=== PATIENT | female | born 1935 | race Caucasian/White ===

== ENCOUNTER 2021-01-20 15:23 | Observation (INO) ==
--- NOTE | 2021-01-20 16:28 | Emergency Department Note ---
Recheck HPI General Chief Complaint: Recheck/Abnormal Lab/Rx Stated Complaint: Low H & H Time Seen by Provider: 01/20/21 16:26 Source: patient Mode of arrival: ambulatory Limitations: no limitations History of Present Illness HPI Narrative: This is an 85-year-old female patient who was seen at the [place] emergency room on 01/17 for GI bleed. She had a hemoglobin of 8.0 at the time, and a CT scan showed uncomplicated diverticulitis of the sigmoid colon. She was recommended for admission but declined and was sent home on oral ciprofloxacin and Flagyl. She returned to her PCPs office yesterday for a blood draw with a hemoglobin that had trended down to 7.5. A transfusion was offered, but she declined. She began having some lightheadedness earlier this morning and noted some bright red blood in her stool. She was advised to get her blood drawn at [facility] and had an H/H of 6.8/22.4 with a BUN of 16. She was advised to come to the ER for evaluation. The patient has a history of GI bleed requiring transfusion. She also has a history of colon polyps and gets a colonoscopy every 5 years with her last colo noscopy approximately 5 years ago. She is diabetic on insulin therapies. Orthostatics here in the ER are negative. Her blood pressures are 171/78 mmHg with heart rate of 69 bpm. Related Data Home Medications Medication Instructions Recorded Confirmed aspirin 81 mg PO BID 01/20/21 01/20/21 carvedilol 6.25 mg PO BID 01/20/21 01/20/21 ciprofloxacin HCl 500 mg PO BID 01/20/21 01/20/21 insulin lispro protamin-lispro 10 unit SUBCUT DAILY 01/20/21 01/20/21 [Humalog Mix 75-25 KwikPen] insulin lispro protamin-lispro 12 unit SUBCUT HS 01/20/21 01/20/21 [Humalog Mix 75-25 KwikPen] levothyroxine 75 mcg PO QDAY 01/20/21 01/20/21 losartan-hydrochlorothiazide 0.5 tab PO HS 01/20/21 01/20/21 losartan-hydrochlorothiazide 1 tab PO QDAY 01/20/21 01/20/21 metformin 500 mg PO BID 01/20/21 01/20/21 metronidazole 500 mg PO BID 01/20/21 01/20/21 simvastatin 20 mg PO DAILY 01/20/21 01/20/21 Allergies Allergy/AdvReac Type Severity Reaction Status Date / Time iodine Allergy Mild Rash Verified 01/20/21 20:11 FISH Allergy Severe Anaphylaxis Uncoded 01/20/21 20:08 SHELLFISH Allergy Severe Anaphylaxis Uncoded 01/20/21 20:11 GR.BEAMS/MUSHROOMS Allergy Mild Nausea Uncoded 01/20/21 20:11 No to Latex Allergy Mild Swelling Uncoded 01/20/21 20:11 Review of Systems ROS ROS Narrative: Narrative: All systems ED: reviewed and negative except as stated. [facility] Narrative Patient History Narrative: Narrative: Medical/Surgical/Family History All Active Problems (Updated 01/20/21 @ 18:38 by Garo Gaviria MD) Mixed dyslipidemia (Acute) Essential (primary) hypertension (Acute) T2DM (type 2 diabetes mellitus) (Acute) Acute blood loss anemia (Acute) Diverticulitis of sigmoid colon (Acute) GI bleeding (Acute) Social History Smoking Status: Never smoker Exam Narrative Narrative: General: AOx3, NAD, nontoxic appearing. Pleasant and conversant. HEENT: PERRLA, EOMI, normocephalic. Moist mucous membranes. Normal facies and normal dentition. Chest: Symmetric Respiratory: No respiratory distress. Unlabored breathing. Heart: Regular rate and rhythm, no murmurs/clicks/rubs. Abdomen: Mild tenderness in the left lower quadrant, Non distended, normal bowel tones. No organomegaly. Extremities: Warm and well perfused. No edema. DP 2+ bilaterally. No venous stasis. Neuro: No focal deficits. Cranial nerves II-XII normal. Skin: Warm dry, no rashes or lesions, no cyanosis. Psych: Normal mood and affect Heme/Lymph: No bruising General Limitations: no limitations Course Course Course Narrative: 85-year-old female is seen and evaluated for acute blood loss anemia thought to be related to GI bleed, and diverticulitis. Reevaluation(s) Reevaluation #1: We will obtain type and cross match and give 1 units PRBCs (order 2). I have spoken with the general surgeon on-call, Dr. Gorman, and he would like her admitted to medicine for transfusion and IV antibiotics for her diverticulitis. He is unable to scope her with active infection and will plan for outpatient scope when she is stabilized. He will see the patient in consult tomorrow. She had a CBC and a CMP this morning at [facility], so will not reorder the studies. Vital Signs Vital signs: Vital Signs Temperature 98.1 F 01/20/21 15:24 Pulse Rate 72 01/20/21 15:24 Respiratory Rate 20 01/20/21 15:24 Blood Pressure 177/72 01/20/21 15:24 Pulse Oximetry (%) 99 01/20/21 15:24 Temperature 98.3 F 01/21/21 07:34 Pulse Rate 75 01/21/21 07:34 Respiratory Rate 18 01/21/21 07:34 Blood Pressure 148/76 01/21/21 07:34 Pulse Oximetry (%) 97 01/21/21 07:34 MDM MDM Narrative Medical decision making narrative: Acute blood loss anemia Diverticulitis GI bleed I have spoken with the hospitalist and he will be admitting for transfusion IV antibiotics. General surgery will consult on the patient tomorrow. Lab Data Result diagrams: 01/21/21 05:10 01/21/21 05:10 Labs: Lab Results 01/20/21 01/20/21 Range/Units 16:39 16:39 WBC 10.9 (4.5-11.0) K/mcL RBC 2.58 L (4.00-5.20) M/mcL Hgb 7.6 L (12.0-15.0) g/dL Hct 24.5 L (36.0-48.0) % MCV 95.0 (80.0-100.0) fL MCH 29.5 (26.0-34.0) pg MCHC 31.0 (31.0-36.0) g/dL RDW 15.8 H (11.5-14.5) % Plt Count 363 (140-440) K/mcL MPV 9.5 (7.4-10.4) fL Neut % (Auto) 57.0 (38.0-78.0) % Lymph % (Auto) 29.9 (15.0-49.0) % [place] % (Auto) 8.0 (1.0-12.0) % Eos % (Auto) 4.4 (0.0-7.0) % Baso % (Auto) 0.7 (0.0-2.0) % Lymph # (Auto) 3.26 (1.50-4.80) K/mcL [place] # (Auto) 0.87 (0.10-0.90) K/mcL Eos # (Auto) 0.48 (0.00-0.70) K/mcL Baso # (Auto) 0.08 (0.00-0.20) K/mcL Absolute Neutrophils 6.22 (1.80-8.00) K/mcL Hemoglobin A1c 6.4 H (4.0-6.0) % Hgb Estim Average Glucose 137 mg/dL ED POC Tests ED POC Tests: TOMMY - SARS Antigen Negative Discharge Plan Patient/Caregiver Discharge Instructions Pt seen by [employer]/PA only: Yes Clinical Impression: Acute blood loss anemia, Diverticulitis of sigmoid colon, GI bleeding Patient Disposition: Xfer As Inpt ([facility]) Discharge Date/Time: 01/20/21 19:43
[2021-01-20] MEDS ORDERED: 0.9 % SODIUM CHLORIDE 250 ML IV SCH (17:15)
[2021-01-20 17:22] LABS: Basophils # (Auto) 0.08 K/mcL (0.00-0.20); Basophils % (Auto) 0.7 % (0.0-2.0); Eosinophils # (Auto) 0.48 K/mcL (0.00-0.70); Eosinophils % (Auto) 4.4 % (0.0-7.0); Hematocrit 24.5 % (36.0-48.0); Hemoglobin 7.6 g/dL (12.0-15.0); Lymphocytes # (Auto) 3.26 K/mcL (1.50-4.80); Lymphocytes % (Auto) 29.9 % (15.0-49.0); Mean Platelet Volume 9.5 fL (7.4-10.4); Monocytes # (Auto) 0.87 K/mcL (0.10-0.90); Platelet Count 363 K/mcL (140-440); RBC 2.58 M/mcL (4.00-5.20); Red Cell Distribution Width 15.8 % (11.5-14.5); WBC 10.9 K/mcL (4.5-11.0)
--- NOTE | 2021-01-20 18:43 | Internal Med History&Physical ---
HPI History of Present Illness Patient information: Note initiated : 01/20/21 at 6:32 pm Service Date, if different from initiated Date: [] Patient: Cathi Florian a 85 y/o F admitted on for Low H & H. Chief Complaint: [Diverticulitis with bleeding] History of present illness: Ms. Florian is a 85 year old F history of essential hypertension's, mixed dyslipidemia, type 2 diabetes mellitus, sigmoid diverticulitis, presenting with bloody stool with anemia. Patient stated that she has been having diarrhea sometimes with admixed blood in the stool since October 1999. On Sunday, January 17, 2021, patient was seen in [facility] ED with chief complaint of pelvic/left lower quadrant abdominal pain and bloody stool and she was being diagnosed with uncomplicated sigmoid diverticulitis with bleeding with a CT of the abdomen and pelvis. She was being discharged home with prescriptions of oral antibiotics. She was being follow-up with PCP office yesterday when she was told to have a repeat lab works today as part of follow- up. Lab works done today including a CBC which shows hemoglobin and hematocrit 6.8 and 22.4, respectively. As a result, patient was called to come back to our ED for reevaluations. Patient is currently complaining of mild, constant, sharp/cramping left lower quadrant abdominal pain/pelvic pain. She is also having hematochezia with last episode earlier today with some stool admixed with blood. She denies any hematemesis. She is complaining of general body weakness. She denies any chest pain, palpitations, lethargy, or shortness of breath. She denies any fever, shaking chills, or sweating. Constitutional Constitutional: Present weakness; Absent chills, excessive sweating, fatigue and fever(s) EENT Eyes: Absent blurry vision, change in vision, loss of vision and other visual disturbances Ears: Absent decreased hearing and tinnitus Nose, mouth and throat: Absent abnormal hearing, dry mouth, headache(s), nasal congestion and sore throat Cardiovascular Cardiovascular: Absent chest pain, chest pain at rest, edema, irregular heart rhythm and palpatations Respiratory Respiratory: Absent cough, dyspnea and wheezing Gastrointestinal Gastrointestinal: Present abdominal pain, diarrhea and hematochezia; Absent constipation, nausea and vomiting Musculoskeletal Musculoskeletal: Absent back pain, deformity, limited range of motion, muscle cramps, muscle weakness and numbness Integumentary Integumentary: Absent lesions, rash and wounds Neurological Neurological: Absent focal weakness, headache(s) and numbness Psychiatric Psychiatric: Absent anxiety, depression and hallucinations PFSH PFSH All Active Problems (Updated 01/20/21 @ 18:38 by Garo Gaviria MD) Mixed dyslipidemia (Acute) Essential (primary) hypertension (Acute) T2DM (type 2 diabetes mellitus) (Acute) Acute blood loss anemia (Acute) Diverticulitis of sigmoid colon (Acute) GI bleeding (Acute) MEDS/ALLERGIES Home Medications and Allergies Home Medications Medication Instructions Recorded Confirmed Type aspirin 81 mg PO BID 01/20/21 01/20/21 History fluticasone propion-salmeterol 1 inh INHALATION BID 01/20/21 01/20/21 History [Advair Diskus] insulin lispro protamin-lispro 5 unit SUBCUT AC 01/20/21 01/20/21 History [Humalog Mix 75-25 KwikPen] insulin lispro protamin-lispro 12 unit SUBCUT DAILY 01/20/21 01/20/21 History [Humalog Mix 75-25 KwikPen] iron bisgl,ps [id number] 1 cap PO BID 01/20/21 01/20/21 History [Frankie Forte] naproxen sodium 220 mg PO BID 01/20/21 01/20/21 History simvastatin 20 mg PO DAILY 01/20/21 01/20/21 History Allergies Allergy/AdvReac Type Severity Reaction Status Date / Time iodine Allergy Unknown Verified 01/20/21 15:24 FISH Allergy Unknown Uncoded 02/25/15 03:48 GR.BEAMS/MUSHROOMS Allergy Unknown Uncoded 02/25/15 03:48 No to Latex Allergy Unknown Uncoded 02/25/15 03:48 SHELLFISH Allergy Unknown Uncoded 02/25/15 03:48 Yes to Iodine Allergy Unknown Uncoded 02/25/15 03:48 EXAM Constitutional Vitals: Temp Pulse Resp BP Pulse Ox 36.7 C 72 20 168/67 98 01/20/21 15:24 01/20/21 17:41 01/20/21 15:24 01/20/21 18:31 01/20/21 17:41 General appearance: cooperative and no acute distress Head Head exam: Present atraumatic and normocephalic Eye Eye exam: Present EOMI and PERRL ENT ENT exam: Present mucous membranes moist, normal exam and normal external ear exam Neck Neck exam: Present normal inspection; Absent lymphadenopathy, tenderness and thyromegaly Respiratory Respiratory exam: Absent accessory muscle use, respiratory distress and wheezes Cardiovascular Cardiovascular exam: Present normal rate and rhythm and systolic murmur; Absent JVD GI/Abdominal GI/Abdominal exam: Present normal bowel sounds, soft and tenderness; Absent organomegaly Extremities Exam Extremities exam: Present full ROM, normal capillary refill and normal inspection; Absent tenderness Neurological Exam Neurological exam: Present alert, CN II-XII intact and oriented X3; Absent motor sensory deficit Psychiatric Psychiatric exam: Present normal affect and normal mood; Absent anxious and depressed Skin Skin exam: Present dry and intact DATA Data Completed and Pending Labs: Labs from last 24 hours 01/20/21 16:39 WBC 10.9 RBC 2.58 L Hgb 7.6 L Hct 24.5 L MCV 95.0 MCH 29.5 MCHC 31.0 RDW 15.8 H Plt Count 363 MPV 9.5 Neut % (Auto) 57.0 Lymph % (Auto) 29.9 [place] % (Auto) 8.0 Eos % (Auto) 4.4 Baso % (Auto) 0.7 Lymph # (Auto) 3.26 [place] # (Auto) 0.87 Eos # (Auto) 0.48 Baso # (Auto) 0.08 Absolute Neutrophils 6.22 A/P Assessment and plan (1) Diverticulitis of sigmoid colon: Status: Acute (2) GI bleeding: Status: Acute (3) Acute blood loss anemia: Status: Acute (4) T2DM (type 2 diabetes mellitus): Status: Acute (5) Essential (primary) hypertension: Status: Acute (6) Mixed dyslipidemia: Status: Acute Narrative A/P Narrative: 1. Uncomplicated sigmoid diverticulitis with associated bleeding and blood loss anemia: Observation med surg Contacted Dr. Gorman, general surgeon, who recommends for antibiotics, blood transfusion, and outpatient colonoscopy 1L NS bolus 2 unit pRBC transfusion cbc w/ auto diff in the AM to trend H/H Hold aspirin Oxycodone PRN moderate pain Ciprofloxacin 500mg PO BID Metronidazole 500mg PO q8hr Outpatient follow up with Dr. Gorman for potential colonoscopy 2. T2DM: HgA1c Hold any oral hypoglycemics Insulin 75/25 10 unit in AM and 12 unit in HS Correctional scale insulin AC HS Accu Chek AC HS Hypoglycemia protocol Diabetic diet 3. Essential HTN: Lisinopril 10 unit PO daily Hydralazine 10mg IV q4hr PRN SBP>=180mmHg and/or DBP>=110mmHg 4. Mixed dyslipidemia: Continue statin therapy GI ppx: not currently indicated DVT ppx: SCDs Code status: Full Prognosis: stable Disposition: observation med surg Time Spent With Patient Time: Total time spent is greater than 50% in coordination of care (as documented) at patient's floor/unit and/or counseling patient: Total time spent with greater than 50% in coordination of care (as documented) at patient's floor/unit and/or counseling patient:: 25 - 35 minutes
[2021-01-20] MEDS ORDERED: traZODone HCL 50 MG TABLET PO PRN (19:41)
[2021-01-20] MEDS ORDERED: hydrALAZINE 20 MG/ML VIAL IV PRN (19:41)
[2021-01-20] MEDS ORDERED: 0.9 % SODIUM CHLORIDE 1,000 ML IV ONE (19:41)
[2021-01-20] MEDS ORDERED: ONDANSETRON 4 MG/2 ML VIAL IV PRN (19:41)
[2021-01-20] MEDS ORDERED: oxyCODONE HCL 5 MG TABLET PO PRN (19:41)
[2021-01-20] MEDS ORDERED: DEXTROSE 50% 50 ML VIAL IV PRN (19:41)
[2021-01-20] MEDS ORDERED: ACETAMINOPHEN 325 MG TABLET PO PRN (19:41)
[2021-01-20] MEDS ORDERED: DEXTROSE 31 GM ORAL.SUSP PO PRN (19:41)
[2021-01-20] MEDS ORDERED: [UNRECOGNIZED DRUG - OTHER] PO SCH (21:00)
[2021-01-20] MEDS ORDERED: CIPROFLOXACIN 500 MG TABLET PO SCH ×2 (21:00)
[2021-01-20] MEDS ORDERED: NAPROXEN SODIUM 220 MG PO SCH (21:00)
[2021-01-20] MEDS ORDERED: FLUTICASONE/SALMETEROL 250/50 INHALER #14 INH SCH (21:00)
[2021-01-20] MEDS ORDERED: [UNRECOGNIZED DRUG - OTHER] PO SCH (21:00)
[2021-01-20] MEDS ORDERED: SENNOSIDES 1 TABLET PO SCH (21:00)
[2021-01-20] MEDS ORDERED: INSULIN LISPRO PROTAMIN LISPRO SUB-Q SCH (21:00)
[2021-01-20] MEDS ORDERED: INSULIN, 75/25 NPL/LISPRO 1 UNIT/0.01 ML UNIT SQ SCH (21:00)
[2021-01-20] MEDS ORDERED: CIPROFLOXACIN 500 MG TABLET PO ONE (21:00)
[2021-01-20] MEDS: NAPROXEN 250 MG TABLET PO SCH (21:25)
[2021-01-20] MEDS: metroNIDAZOLE 500 MG TABLET PO SCH (21:39)
[2021-01-20] MEDS: INSULIN LISPRO 1 UNIT/0.01 ML UNIT SQ SCH (21:39)
[2021-01-20] MEDS: FLUTICASONE/SALMETEROL 250/50 INHALER #14 INH SCH (21:54)
[2021-01-20] MEDS: DOCUSATE SODIUM 100 MG CAPSULE PO SCH (21:55)
[2021-01-20] MEDS: 0.9 % SODIUM CHLORIDE 10 ML SYRINGE IV SCH (21:56)
[2021-01-20] MEDS ORDERED: metroNIDAZOLE 500 MG TABLET PO SCH (22:00)
[2021-01-20 23:30] LABS: Hemoglobin A1C 6.4 % Hgb (4.0-6.0)
[2021-01-21] MEDS: metroNIDAZOLE 500 MG TABLET PO SCH (06:14)
[2021-01-21] MEDS: 0.9 % SODIUM CHLORIDE 10 ML SYRINGE IV SCH (06:14)
[2021-01-21] MEDS: INSULIN LISPRO 1 UNIT/0.01 ML UNIT SQ SCH (07:01)
[2021-01-21 07:29] LABS: Basophils # (Auto) 0.08 K/mcL (0.00-0.20); Basophils % (Auto) 0.7 % (0.0-2.0); Eosinophils # (Auto) 0.35 K/mcL (0.00-0.70); Eosinophils % (Auto) 3.1 % (0.0-7.0); Hematocrit 32.6 % (36.0-48.0); Hemoglobin 10.6 g/dL (12.0-15.0); Lymphocytes # (Auto) 2.75 K/mcL (1.50-4.80); Lymphocytes % (Auto) 24.1 % (15.0-49.0); Mean Cell Volume 91.6 fL (80.0-100.0); Mean Corpuscular HGB Conc 32.5 g/dL (31.0-36.0); Mean Platelet Volume 9.3 fL (7.4-10.4); Neutrophils % (Auto) 65.1 % (38.0-78.0); Platelet Count 304 K/mcL (140-440); RBC 3.56 M/mcL (4.00-5.20); Red Cell Distribution Width 14.7 % (11.5-14.5); WBC 11.4 K/mcL (4.5-11.0)
[2021-01-21 07:35] LABS: ALT/SGPT 7 U/L (<40); AST/SGOT 17 U/L (<32); Albumin 3.5 gm/dL (3.2-5.2); Albumin/Globulin Ratio 1.1 (1.0-2.3); Alkaline Phosphatase 63 U/L (39-117); Bilirubin,Total 0.2 mg/dL (0.1-1.0); Blood Urea Nitrogen 11 mg/dL (8-23); Calcium 8.8 mg/dL (8.6-10.4); Carbon Dioxide 25 mmol/L (22-30); Chloride 104 mmol/L (96-108); Globulin 3.3 gm/dL (2.2-3.7); Glomerular Filtration Rate 46; Glucose 108 mg/dL (70-105)
[2021-01-21] MEDS: NAPROXEN 250 MG TABLET PO SCH (08:07)
[2021-01-21] MEDS: DOCUSATE SODIUM 100 MG CAPSULE PO SCH (08:08)
[2021-01-21] MEDS: FLUTICASONE/SALMETEROL 250/50 INHALER #14 INH SCH (08:08)
[2021-01-21] MEDS ORDERED: SIMVASTATIN 20 MG TABLET PO SCH ×3 (09:00→21:00)
[2021-01-21] MEDS ORDERED: LISINOPRIL 10 MG TABLET PO SCH (09:00)
[2021-01-21] MEDS ORDERED: CIPROFLOXACIN 500 MG TABLET PO SCH (09:00)
[2021-01-21] MEDS ORDERED: INSULIN, 75/25 NPL/LISPRO 1 UNIT/0.01 ML UNIT SQ SCH (09:00)
--- NOTE | 2021-01-21 09:42 | Discharge Summary ---
Discharge Provider Provider Patient information: Note initiated : 01/21/21 at 9:39 am Service Date, if different from initiated Date: [] Patient: Cathi Florian 85 y/o F admitted on 01/20/21 for Low H & H. Chief Complaint: [Diverticulitis with bleeding] Date of admission: 01/20/21 19:35 Discharge date: 01/21/21 Primary care physician: Charity Brown Consults: 01/20/21 Consult to Physician [CONS] Stat Comment: Consulting Provider: Garo Gaviria Reason For Exam: Physician to Consult Consult to Physician [CONS] Stat Comment: Consulting Provider: Deven Gorman Reason For Exam: Physician to Consult Discharge Meds Discharge Medications Home Medications aspirin 81 mg PO BID 01/20/21 [History Confirmed 01/20/21 Last Taken 01/20/21 08:00] carvedilol 6.25 mg PO BID 01/20/21 [History Confirmed 01/20/21 Last Taken 01/20/21 08:00] ciprofloxacin HCl 500 mg PO BID 01/20/21 [History Confirmed 01/20/21 Last Taken 01/20/21 08:00] insulin lispro protamin-lispro [Humalog Mix 75-25 KwikPen] 10 unit SUBCUT DAILY 01/20/21 [History Confirmed 01/20/21 Last Taken 01/20/21 08:00] insulin lispro protamin-lispro [Humalog Mix 75-25 KwikPen] 12 unit SUBCUT HS 01/20/21 [History Confirmed 01/20/21 Last Taken 01/19/21 20:00] levothyroxine 75 mcg PO QDAY 01/20/21 [History Confirmed 01/20/21 Last Taken 01/20/21 08:00] losartan-hydrochlorothiazide 0.5 tab PO HS 01/20/21 [History Confirmed 01/20/21 Last Taken 01/19/21 20:00] losartan-hydrochlorothiazide 1 tab PO QDAY 01/20/21 [History Confirmed 01/20/21 Last Taken 01/20/21 08:00] metformin 500 mg PO BID 01/20/21 [History Confirmed 01/20/21 Last Taken 01/10/21] simvastatin 20 mg PO DAILY 01/20/21 [History Confirmed 01/20/21 Last Taken 01/19/21 20:00] metronidazole 500 mg PO Q8H 10 Days #30 tab 01/21/21 [Rx Last Taken Unknown] COURSE Hospital Course Hospital course: Patient was admitted on 01/20/21 for uncomplicated sigmoid diverticulitis with bleeding. 2 unit pRBC transfusion was given and hemoglobin count increased from 7.6 to 10.6. No additional GI bleeding episode was found. Been afebrile throughout her hospital stay. Ciprofloxacin 500mg PO BID and Flagyl 500mg PO TID continued. By 01/21/21 she reached clinical stability and the decision was made to discharge her home with Rx of Flagyl 500mg PO TID sent to pharmacy. Ciprofloxacin 500mg PO BID should be continued. All questions were answered prior to patient being physically discharged. Discharge diagnosis: Uncomplicated sigmoid diverticulitis with bleeding Time Spent with Patient Time attestation: Total time spent providing and/or coordinating discharge services: Time spent: Less than 30 minutes EXAM Constitutional Vitals: Temp Pulse Resp BP Pulse Ox 36.8 C 75 18 148/76 97 01/21/21 07:34 01/21/21 07:34 01/21/21 07:34 01/21/21 07:34 01/21/21 07:34 General appearance: cooperative and no acute distress Head Head exam: Present atraumatic and normocephalic Eye Eye exam: Present EOMI and PERRL ENT ENT exam: Present mucous membranes moist, normal exam and normal external ear exam Neck Neck exam: Present normal inspection; Absent lymphadenopathy, tenderness and thyromegaly Respiratory Respiratory exam: Absent accessory muscle use, respiratory distress and wheezes Cardiovascular Cardiovascular exam: Present normal rate and rhythm; Absent JVD GI/Abdominal GI/Abdominal exam: Present normal bowel sounds and soft; Absent organomegaly and tenderness Extremities Exam Extremities exam: Present full ROM, normal capillary refill and normal inspection; Absent tenderness Neurological Exam Neurological exam: Present alert, CN II-XII intact and oriented X3; Absent motor sensory deficit Psychiatric Psychiatric exam: Present normal affect and normal mood; Absent anxious and depressed Skin Skin exam: Present dry and intact Discharge Data Data Completed and Pending Labs on day of discharge: Labs from last 24 hours 01/21/21 01/21/21 01/20/21 05:10 05:10 16:39 WBC 11.4 H RBC 3.56 L Hgb 10.6 L Hct 32.6 L MCV 91.6 MCH 29.8 MCHC 32.5 RDW 14.7 H Plt Count 304 MPV 9.3 Neut % (Auto) 65.1 Lymph % (Auto) 24.1 [place] % (Auto) 7.0 Eos % (Auto) 3.1 Baso % (Auto) 0.7 Lymph # (Auto) 2.75 [place] # (Auto) 0.80 Eos # (Auto) 0.35 Baso # (Auto) 0.08 Absolute Neutrophils 7.45 Sodium 139 Potassium 3.5 Chloride 104 Carbon Dioxide 25 Anion Gap 10.0 BUN 11 Creatinine 1.1 GFR Calculation 46 Glucose 108 H Hemoglobin A1c 6.4 H Estim Average Glucose 137 Calcium 8.8 Total Bilirubin 0.2 AST 17 ALT 7 Alkaline Phosphatase 63 Total Protein 6.8 Albumin 3.5 Globulin 3.3 Albumin/Globulin Ratio 1.1 01/20/21 16:39 WBC 10.9 RBC 2.58 L Hgb 7.6 L Hct 24.5 L MCV 95.0 MCH 29.5 MCHC 31.0 RDW 15.8 H Plt Count 363 MPV 9.5 Neut % (Auto) 57.0 Lymph % (Auto) 29.9 [place] % (Auto) 8.0 Eos % (Auto) 4.4 Baso % (Auto) 0.7 Lymph # (Auto) 3.26 [place] # (Auto) 0.87 Eos # (Auto) 0.48 Baso # (Auto) 0.08 Absolute Neutrophils 6.22 Sodium Potassium Chloride Carbon Dioxide Anion Gap BUN Creatinine GFR Calculation Glucose Hemoglobin A1c Estim Average Glucose Calcium Total Bilirubin AST ALT Alkaline Phosphatase Total Protein Albumin Globulin Albumin/Globulin Ratio Discharge Plan Patient/Caregiver Discharge Instructions Activity: increase activity as tolerated Diet: Regular Diet Activity Restrictions/Additional Instructions: 2 week PCP follow up appointment Prescriptions: New metronidazole 500 mg Tablet 500 mg PO Q8H 10 Days Qty: 30 RF: 0 Continued aspirin 81 mg Tablet 81 mg PO BID RF: 0 simvastatin 20 mg tablet 20 mg PO DAILY RF: 0 insulin lispro protamin-lispro [Humalog Mix 75-25 KwikPen] 100 unit/mL (75-25) insulin pen 10 unit SUBCUT DAILY RF: 0 insulin lispro protamin-lispro [Humalog Mix 75-25 KwikPen] 100 unit/mL (75-25) insulin pen 12 unit SUBCUT HS RF: 0 carvedilol 6.25 mg Tablet 6.25 mg PO BID RF: 0 levothyroxine 75 mcg Tablet 75 mcg PO QDAY RF: 0 losartan-hydrochlorothiazide 100-25 mg Tablet 1 tab PO QDAY RF: 0 losartan-hydrochlorothiazide 100-25 mg Tablet 0.5 tab PO HS RF: 0 metformin 500 mg Tablet 500 mg PO BID RF: 0 ciprofloxacin HCl 500 mg tablet 500 mg PO BID RF: 0 Discontinued metronidazole 500 mg tablet 500 mg PO BID RF: 0 Follow Up Plan Follow up with: Charity Brown ARNP [Primary Care Provider] - Patient Disposition: Home, Self-Care Overall status at discharge: patient is back to baseline Discharge Orders: Discharge Order (Routine); Ordered 01/21/21 Ordered By: Garo FONTANA VTE Deep Vein Thrombosis/Pulmonary Embolism Present on Admission: No
== END 2021-01-21 11:00 | disposition home or self-care (01) ==
LOC: ED 15:23 → INTOOBSV 19:35 → MEDSUR 19:38
PROVIDERS: ADMIT Internal Medicine; ATTEND Internal Medicine